=== PATIENT | male | born 1955 | race Caucasian/White ===

== ENCOUNTER → 2018-07-17 09:30 | Outpatient (CLI) | payer OTHER, SELFPAY ==
--- NOTE | 2018-07-17 | DI.US.S_ITS ---
PROCEDURE: US RENAL COMPLETE INDICATIONS: FREQUENT UTI TECHNIQUE: Real-time scanning was performed of the kidneys and bladder, with image documentation. COMPARISON: [facility], CT, PELVIS W CONTRAST, 10/01/2013, 16:55. FINDINGS: Kidneys: Kidneys are normal in size. Right kidney measures 11.4 cm long; left kidney measures 10.4 cm long. Right renal cortical thickness is 1.7 cm; left renal cortical thickness is 2.0 cm. Renal cortical echotexture is normal. No hydronephrosis or nephrolithiasis. No suspicious solid mass lesions. Bladder: Soft tissue posterior wall bladder mass present measuring 1.1 x 1.0 x 1.4 cm. Prevoid bladder volume estimated at 336 cc and no postvoid residual. Bilateral ureteral jets. Miscellaneous: No free pelvic fluid. IMPRESSION: 1. Normal appearance the kidneys bilaterally. 2. Soft tissue mass along the posterior wall of the urinary bladder with mild vascularity. Recommend urologic consultation and cystoscopy to exclude underlying urinary bladder neoplastic mass. Alternatively, contrast enhance CT IVP could be performed. Dictated by: Umesh MCCOY Interpreted: Mike Moreno MD on 07/17/2018 at 10:50 Approved by: Mike Moreno M.D. on 07/17/2018 at 14:01
== END ==
PROVIDERS: PCP Family Medicine; Visit Provider Family Medicine
DX: N39.0 Urinary tract infection, site not specified (principal); N32.9 Bladder disorder, unspecified
CPT/HCPCS: 76770

== ENCOUNTER → 2018-11-20 08:15 | Outpatient (CLI) | payer OTHER, SELFPAY ==
--- NOTE | 2018-11-20 | DI.RAD.S_ITS ---
PROCEDURE: XR SHOULDER LT MIN 2V INDICATIONS: Left shoulder pain TECHNIQUE: 3 views of the shoulder were acquired. COMPARISON: None. FINDINGS: Bones: No fractures or dislocations. No suspicious bony lesions. Visualized ribs appear intact. Soft tissues: No suspicious soft tissue calcifications. There is a rounded lucency measuring approximately 3.5 cm seen on all 3 images of the left shoulder, in the approximate area of the axilla or dorsal margin of the axilla. The radiodensity raises question of whether this represents a lipoma within the musculature. 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 Note is made of an unusual rounded lucency, measuring approximately 3.5 cm in diameter, seen on all 3 views of the shoulder near the expected region of the dorsal axilla. This could represent a lipoma within the musculature. Please correlate clinically to this general region to determine whether followup advanced imaging such as CT or MR is warranted. Dictated by: Mike Moreno M.D. on 11/20/2018 at 9:13 Approved by: Mike Moreno M.D. on 11/20/2018 at 9:19
== END ==
PROVIDERS: PCP Family Medicine; Visit Provider Family Medicine
DX: M25.512 Pain in left shoulder (principal); M19.012 Primary osteoarthritis, left shoulder
CPT/HCPCS: 73030

== ENCOUNTER 2019-08-10 04:51 | Emergency (ER) | payer OTHER, SELFPAY ==
[2019-08-10 04:53] VITALS: BP 110/63; PULSE 61; RESP 16; TEMP 36.1; O2SAT 100; BMI 33.0
--- NOTE | 2019-08-10 04:53 | DI.RAD.S_ITS ---
PROCEDURE: XR HIP W PEL IF DONE RT 2V INDICATIONS: severe R hip pain TECHNIQUE: 2 views of the hip were acquired. COMPARISON: [facility], , HIP 2V LEFT, 09/07/2015, 13:08. FINDINGS: Bones: No fractures or dislocations. No suspicious bony lesions. The visualized pelvic ring appears intact. Moderate-severe right hip joint degeneration. Scattered degenerative subchondral sclerosis and spurring. Decreased femoral head neck step-off Soft tissues: No suspicious soft tissue calcifications or masses. IMPRESSION: Moderate to severe right hip joint degeneration. Decreased right femoral head-neck step-off which can be seen in the setting of femoral acetabular impingement syndrome however only in the appropriate clinical context. Dictated by: Esvin Garner M.D. on 08/10/2019 at 9:05 Approved by: Esvin Garner M.D. on 08/10/2019 at 9:07
[2019-08-10] MEDS: fentaNYL 100 MCG/2 ML INJ 50 MCG IV ×2 (05:02→07:07)
--- NOTE | 2019-08-10 05:02 | ED_ITS ---
HPI - Extremity Injury (Lower) General Chief Complaint: Urogenital-Male Stated Complaint: Rt Groin pain Time Seen by Provider: 08/10/19 04:52 Source: patient and EMS Mode of arrival: EMS Limitations: no limitations History of Present Illness HPI Narrative: 64M former smoker with history of hypertension presents by EMS with a chief complaint of a severe and sudden onset right groin pain. Up for the morning and in the shower and while standing twisted his torso and felt this sudden, severe pain. It seems to be much worse when trying to ambulate or moving his leg. He feels radiation into his back. He has never felt pain like this before. Of complaint. He denies any numbness, tingling or weakness. He denies any recent illness such as fever, chills nor nausea or vomiting. MD complaint: hip injury Onset (ago): minute(s) Place: home Severity: severe Relieving factors: rest Exacerbating factors: weight bearing, movement and palpation Context: other Associated symptoms: unable to bear weight Other symptoms: none Related Data Previous Rx's Medication Instructions Recorded cyclobenzaprine 10 mg PO TID PRN #14 tab 08/10/19 ketorolac 10 mg PO Q6H PRN #14 tab 08/10/19 lidocaine [Lidoderm] 1 patch TOP DAILY #15 each 08/10/19 Allergies Allergy/AdvReac Type Severity Reaction Status Date / Time No Known Drug Allergies Allergy Verified 08/10/19 05:01 Review of Systems Constitutional Constitutional: Denies chills, Denies fatigue, Denies fever(s), Denies frequent falls, Denies lethargy and Denies weakness Eyes Eyes: Denies change in vision, Denies eye discharge, Denies irritation and Denies loss of vision ENT Ears, Nose, Mouth, and Throat: Denies change in voice, Denies dizziness, Denies neck pain, Denies sore throat and Denies throat swelling Cardiovascular Cardiovascular: Denies chest pain, Denies irregular heart rhythm, Denies lightheadedness, Denies palpitations, Denies dyspnea, Denies dyspnea on exertion and Denies orthopnea Respiratory Respiratory: Denies cough, Denies dyspnea, Denies dyspnea on exertion and Denies wheezing Gastrointestinal Gastrointestinal: Denies abdominal pain, Denies change in bowel habits, Denies diarrhea, Denies nausea and Denies vomiting Genitourinary Genitourinary: Denies hematuria, Denies flank pain, Denies urinary incontinence and Denies urinary urgency Musculoskeletal Musculoskeletal: Denies back pain, Denies muscle weakness, Denies neck pain, Denies numbness and Denies tingling Integumentary/Breasts Skin/Breast: Denies pruritus, Denies erythema, Denies rash and Denies wounds Neurologic Neurologic: Denies behavioral changes, Denies confusion, Denies dizziness, Stanley es frequent falls, Denies loss of vision, Denies numbness, Denies tingling and Denies weakness Psychiatric Psychiatric: Denies anxiety, Denies behavioral changes, Denies confusion, Denies depression, Denies homicidal ideation and Denies suicidal ideation Endocrine Endocrine: Denies fatigue, Denies flushing and Denies palpitations Hematologic/Lymphatic Hematologic/Lymphatic: Denies easy bruising Allergic/Immunologic Allergic/Immunologic: Denies urticaria, Denies throat swelling and Denies wheezing Patient History Social History Smoking Status: Former smoker tobacco type: cigarettes Exam Narrative Exam Narrative: GENERAL: [64] year old patient appears stated age. Well- nourished, well-developed patient, in mild distress. Obviously in pain HEAD: Atraumatic. Normocephalic. EYES: Pupils equal round and reactive. Extraocular motions intact. No scleral icterus. No injection or drainage. ENT: Nose without bleeding, purulent drainage. Throat without erythema, tonsillar hypertrophy or exudate. Airway patent. NECK: Trachea midline. Non tender CARDIOVASCULAR: Regular rate and rhythm without murmurs, gallops, or rubs. RESPIRATORY: Clear to auscultation. Breath sounds equal bilaterally. No wheezes, rales, or rhonchi. GASTROINTESTINAL: Abdomen soft, non-tender, nondistended. GROIN: examined while standing. No hernia noted. No testicular pain or swelling. EXTREMITIES: No edema or joint tenderness. Right lower extremity externally rotated, no numbness or tingling. Severe pain with palpation in the groin or motion of the right lower extremity at the hip BACK: Nontender without deformity or crepitance. No flank tenderness. NEURO: AOx3. SKIN: No rash or erythema of visible areas Initial Vital Signs Initial Vital Signs: Vital Signs Temperature 97.0 F L 08/10/19 04:53 Pulse Rate 61 08/10/19 04:53 Respiratory Rate 16 08/10/19 04:53 Blood Pressure 110/63 08/10/19 04:53 Pulse Oximetry 100 08/10/19 04:53 Course Orders Ordered: ED Orders 08/10/19 04:53 XR hip w pel if done RT 2V Stat 08/10/19 05:00 Basic Metabolic Panel Stat Complete Blood Count AUTO DIFF Stat 08/10/19 05:26 CT kidney ureter bladder (KUB) Stat Discontinued Medications Cyclobenzaprine HCl (Flexeril 10 Mg Prepack) 1 bottle MISC SEEINSTR ONE Stop: 08/10/19 06:58 Fentanyl (Sublimaze) 50 mcg IV NOW ONE Stop: 08/10/19 04:54 Last Admin: 08/10/19 05:02 Dose: 50 mcg Documented by: JAYRO Fentanyl (Sublimaze) 50 mcg IV NOW ONE Stop: 08/10/19 06:58 Vital Signs Vital signs: Vital Signs - 8 hr 08/10/19 04:53 08/10/19 05:48 08/10/19 06:00 Temperature 97.0 F L Pulse Rate 61 65 66 Respiratory Rate 16 16 18 Blood Pressure 110/63 Blood Pressure [Right Arm] 137/76 132/75 Pulse Oximetry 100 99 99 MDM - Extremity Injury (Lower) Lab Data Result diagrams: 08/10/19 05:00 08/10/19 05:00 Labs: Lab Results 08/10/19 08/10/19 Range/Units 05:00 05:00 WBC 7.1 (4.5-11.0) X10^3/uL RBC 4.29 L (4.5-5.9) X10^6/uL Hgb 13.7 (13.5-17.5) g/dL Hct 38.9 L (41-53) % MCV 90.6 (80-100) fL MCH 31.9 (26-34) PG MCHC 35.2 (30-36) % RDW 13.5 (11.6-14.8) % Plt Count 271 (150-400) X10^3/uL Neut % (Auto) 45.6 L (50-75) % Lymph % (Auto) 38.4 (25-40) % Lynn % (Auto) 10.5 (3-14) % Eos % (Auto) 4.5 H (2-4) % Baso % (Auto) 1.0 (0-2) % Neut # (Auto) 3200 (5382-1166) /uL Lymph # (Auto) 2700 (3383-8646) /uL Lynn # (Auto) 700 (0-900) /uL Eos # (Auto) 300 (0-450) /uL Baso # (Auto) 100 (0-100) /uL Sodium 137 (137-145) mmol/L Potassium 3.3 L (3.4-5.1) mmol/L Chloride 102 (98-107) mmol/L Carbon Dioxide 28 (22-32) mmol/L BUN 21 H (9-20) mg/dL Creatinine 0.80 (0.66-1.25) mg/dL Estimated GFR > 60.0 (>60) mL/min BUN/Creatinine Ratio 26.3 H (6-22) Glucose 145 H (80-110) mg/dL Calcium 9.1 (8.4-10.2) mg/dL Urine Dip Bedside Urine Glucose Negative Bedside Urine Bilirubin - Negative Bedside Urine Ketone - Negative Urine Specific [place] 1.015 Bedside Urine Occult Blood - Negative Bedside Urine pH 6.0 Bedside Urine Protein - Negative Bedside Urine Urobilinogen - Negative Bedside Urine Nitrite - Negative Bedside Urine Leukocytes - Negative Esterase Imaging Data CT scan - abdomen: Radiologist's impression: 1. Normal appendix 2. No nephrolithiasis 3. Stool-filled colon including the terminal ileum MDM Narrative Medical decision making narrative: 64-year-old male presents by EMS with severe, sudden onset right groin pain with some radiation to his back. He complained of worsening pain with range of motion though the pain still seemed to be present while sitting still. Multiple diagnoses considered including hip fracture as well as kidney stone. These are thought unlikely given the lack of findings on imaging, reassuring labs and urine in the absence of blood. Inguinal hernia and testicular torsion considered but thought less likely given lack of findings on exam. At no point did patient complaint of testicular pain, he does have a small amount of tenderness in his right inguinal region but certainly no hernia present. Extensive return precautions given, questions answered to his apparent satisfaction Discharge Plan Departure Patient Disposition: Home Clinical Impression: Rt groin pain Instructions: DI for Pelvic Pain Activity Restrictions/Additional Instructions: *You have been diagnosed with [ Right groin pain ] *What to do: *Take medications as directed *Follow up with your primary care provider in 2-3 days, call for an appointment. Let them know you were seen in the Emergency Department and that we ask that you be seen in follow up *Return to ER if you should have any new, worsening or concerning symptoms Prescriptions: New cyclobenzaprine 10 mg tablet 10 mg PO TID PRN (Reason: muscle spasm) Qty: 14 RF: 0 ketorolac 10 mg tablet 10 mg PO Q6H PRN (Reason: pain) Qty: 14 RF: 0 lidocaine [Lidoderm] 5 % adhesive patch,medicated 1 patch TOP DAILY Qty: 15 RF: 0 Referrals: Kylah Johnson MD [Primary Care Provider] -
--- NOTE | 2019-08-10 05:26 | DI.CT.S_ITS ---
PROCEDURE: CT KIDNEY URETER BLADDER (KUB) INDICATIONS: severe R groin pain, radiation to back TECHNIQUE: Noncontrast 5 mm thick sections acquired from the diaphragms to the symphysis. 5 mm thick coronal and sagittal reformats were then performed. For radiation dose reduction, the following was used: automated exposure control, adjustment of mA and/or kV according to patient size. COMPARISON: None. FINDINGS: Image quality: Excellent. Lung bases: Left basilar atelectasis. Heart size is normal. Urinary system: Both kidneys are normal in size. No kidney stones. No hydronephrosis. There is mild bilateral perinephric fat stranding. Both ureters appear non-dilated throughout their expected courses. Bladder wall may be mildly thickened although bladder is not fully distended; no calcified bladder stones. Enlarged prostate. Other solid organs: Liver is normal in size. Gallbladder is normal. Pancreas is normal in contours. Spleen is normal in size. No adrenal nodules. Peritoneum and bowel: Unenhanced bowel loops demonstrate normal wall thickness and caliber. Normal appendix. No free fluid or air. Nodes and vessels: No retroperitoneal or mesenteric adenopathy by size criteria. Aorta and inferior vena cava are normal in caliber. Abdominal wall: No ventral hernias. There is a 2.1 x 7.2 cm lipoma in the right flank between the external and internal oblique abdominal muscles. Pelvis: No free pelvic fluid. No inguinal hernias or adenopathy. Bones: No suspicious bony lesions. No vertebral body compression fractures. Degenerative changes in the lower thoracic spine and lumbar spine with moderate to severe central canal stenosis in the lower lumbar spine. IMPRESSION: 1. No renal stone hydronephrosis. There is mild bilateral perinephric stranding, which is nonspecific. 2. Mild bladder wall thickening may be secondary to inadequate distention. A differential diagnosis is cystitis. 3. Normal appendix. 4. Enlarged prostate. 5. Degenerative changes in the lower thoracic and lumbar spine. There is [id number] central canal stenosis in the lower lumbar spine. 6. 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 Dictated by: Cristiana Ferrari M.D. on 08/10/2019 at 8:03 Approved by: Cristiana Ferrari M.D. on 08/10/2019 at 8:14
[2019-08-10 05:36] LABS: Add Manual Diff / Slide Review NO; Basophils Absolute Auto 100 /uL (0-100); Eosinophils Absolute Auto 300 /uL (0-450); Eosinophils Percent Auto 4.5 % (2-4); Hematocrit 38.9 % (41-53); Hemoglobin 13.7 g/dL (13.5-17.5); Lymphocytes Absolute Auto 2700 /uL (1100-4500); Lymphocytes Percent Auto 38.4 % (25-40); Mean Corpuscular HGB Conc 35.2 % (30-36); Mean Corpuscular Hemoglobin 31.9 PG (26-34); Mean Corpuscular Volume 90.6 fL (80-100); Monocytes Absolute Auto 700 /uL (0-900); Monocytes Percent Auto 10.5 % (3-14); Neutrophils Absolute Auto 3200 /uL (1500-7000); Neutrophils Percent Auto 45.6 % (50-75); Platelet Count 271 X10^3/uL (150-400); Red Blood Cell Count 4.29 X10^6/uL (4.5-5.9); Red Cell Distribution Width 13.5 % (11.6-14.8); White Blood Cell Count 7.1 X10^3/uL (4.5-11.0)
[2019-08-10 05:42] LABS: BUN Creatinine Ratio 26.3 (6-22); Blood Urea Nitrogen 21 mg/dL (9-20); Calcium 9.1 mg/dL (8.4-10.2); Carbon Dioxide 28 mmol/L (22-32); Chloride 102 mmol/L (98-107); Estimated Glomerular Filt Rate > 60.0 mL/min (>60); Glucose 145 mg/dL (80-110); HEMOLYSIS < 15 (0-50); Potassium 3.3 mmol/L (3.4-5.1); Sodium 137 mmol/L (137-145)
[2019-08-10 05:48] VITALS: BP 137/76; PULSE 65; RESP 16; O2SAT 99
[2019-08-10 06:00] VITALS: BP 132/75; PULSE 66; RESP 18; O2SAT 99
[2019-08-10] MEDS: CYCLOBENZAPRINE 10 MG PREPACK 1 BOTTLE MISC (07:37)
[2019-08-10 07:42] VITALS: BP 139/70; PULSE 64; RESP 18; O2SAT 97
== END 2019-08-10 07:42 | disposition home or self-care (01) ==
PROVIDERS: Emergency Provider Emergency Medicine; PCP Family Medicine
DX: R10.31 Right lower quadrant pain (principal); M25.551 Pain in right hip
CPT/HCPCS: 36415; 73502; 74176; 80048; 81003; 85025; 96374; 96375; 99283; 99284; J3010